=== PATIENT | male | born 1940 | race Caucasian/White ===

== ENCOUNTER 2017-02-13 06:03 | Day surgery (SDC) | payer MEDICARE, OTHER ==
[~2017-02-13] VITALS: Ht 177.8 cm; Wt 73.6 kg
[2017-02-13 06:51] VITALS: BP 147/72; PULSE 67; RESP 20; TEMP 98.4; O2SAT 95
[2017-02-13] MEDS ORDERED: LISI-519 PO (06:52)
[2017-02-13] MEDS ORDERED: OMEP20TA93 PO (06:52)
[2017-02-13] MEDS ORDERED: ASPI81CH6 CHEW (06:52)
[2017-02-13] MEDS ORDERED: FERR325T18 PO (06:52)
[2017-02-13] MEDS ORDERED: PRAV20TA2 PO (06:52)
[2017-02-13] MEDS ORDERED: SODIUM CHLORIDE 0.9% 1000 ML IV SCH (07:00)
[2017-02-13] MEDS ORDERED: LIDOCAINE 1%/EPINEPHrine 1:100,000 SOLN 20 ML VIAL ONE (07:55)
[2017-02-13] MEDS ORDERED: MIDAZOLAM HCL 2 MG/2 ML VIAL ONE (08:03)
--- NOTE | 2017-02-13 08:29 | PD.RAD ---
Post CT Procedure Prog Note Pre Procedure Diagnosis: (1) CRI (chronic renal insufficiency) Post Procedure Diagnosis: Procedure Date: Feb 13, 2017 Supervising Radiologist: Robbie Glover JR Anesthesia: Conscious Sedation Plan of Activity Patient to Unit: ROPU Patient Condition: Good Additional Comments: CT guided large left renal cyst aspiration. Clear, straw-colored fluid obtained. Sampling not requested. F/U CT shows total decompression of the cyst. See PACS Report for procedural detail/treatment Jr. Adalberto,Robbie Palacios MD Feb 13, 2017 08:29
[2017-02-13 08:45] VITALS: BP 111/60; PULSE 65; RESP 20; TEMP 97.5; O2SAT 95
[2017-02-13 09:00] VITALS: BP 112/57; PULSE 64; RESP 20; O2SAT 97
[2017-02-13 09:30] VITALS: BP 109/59; PULSE 64; RESP 20; O2SAT 97
--- NOTE | 2017-02-13 09:31 | RADRPT ---
EXAM DATE/TIME: 02/13/2017 08:10 [facility] COMPARISON: No previous studies available for comparison. INDICATIONS : Left renal cyst with concern for compression of the upper pole calyx and resulting hydronephrosis. SEDATION TIME: 15 minutes MEDICATION(S): 1.) 2 mg midazolam (Versed) IV 2.) 100 mcg fentanyl (Sublimaze) IV DEVICE(S): 1.) 7 fr FLUID: Total volume of 350 cc of clear, yellow fluid was removed. Fluid was discarded. MEDICAL HISTORY : Hypertension. Diabetes mellitus type 2. Renal calculi. SURGICAL HISTORY : None. ENCOUNTER: Initial ACUITY: 1 day PAIN SCORE: 0/10 LOCATION: Left flank PROCEDURE: 1.) Conscious sedation with continuous EKG and oximetry monitoring. 2.) EKG and oximetry remained stable throughout the procedure. PROCEDURE : CT guided large left renal cyst aspiration. The risks, benefits and alternatives to the procedure were explained and verbal and written consent w as obtained. Using automated exposure control and adjustment of the mA and/or kV according to patien t size, radiation dose was kept as low as reasonably achievable to obtain optimal diagnostic quality images. The site was prepped in sterile fashion. Full sterile technique was used, including cap, ma sk, sterile gloves and gown and a large sterile sheet. Hand hygiene and 2% chlorhexidine and/or beta dine/alcohol prep was utilized per protocol for cutaneous antisepsis. The skin and subcutaneous tiss ues were infiltrated with local anesthetic solution. DICOM format image data is available electronic ally for review and comparison. Under CT guidance a 7 [place] nonlocking drainage catheter was passed via left midaxillary line approa into the dominant left renal cyst. Aspiration yielded clear serous fluid. A total of 350 mL of flu id was obtained. Sampling was not requested. Followup CT images show complete decompression of the cy st. Multiple bilateral renal calculi noted. CONCLUSION: Uncomplicated dominant left renal cyst decompression as above. Robbie Glover Jr., MD on February 13, 2017 at 9:26 Board Certified Radiologist. This report was verified electronically.
[2017-02-13 10:00] VITALS: BP 110/59; PULSE 64; RESP 20; O2SAT 97
[2017-02-13 10:30] VITALS: BP 115/59; PULSE 64; RESP 20; O2SAT 97
== END 2017-02-13 11:05 | disposition home or self-care (01) ==
LOC: HRAD 06:03 → HRIP 06:05 → HRAD 11:05
PROVIDERS: ATTEND Urology
DX: N28.1 Cyst of kidney, acquired (principal); N13.30 Unspecified hydronephrosis; I12.9 Hypertensive chronic kidney disease with stage 1 through stage 4 chronic kidney disease, or unspecified chronic kidney disease; N18.1 Chronic kidney disease, stage 1; E11.22 Type 2 diabetes mellitus with diabetic chronic kidney disease; Z87.442 Personal history of urinary calculi
CPT/HCPCS: 50390; 77012; 99152; C1729; J2250; J3010; J7030

== ENCOUNTER 2017-02-16 00:04 | Emergency (ER) | payer MEDICARE, OTHER ==
[~2017-02-16] VITALS: Ht 177.8 cm; Wt 75.0 kg
[~2017-02-16 00:04] MED LIST: ASPI81CH6 CHEW; FERR325T18 PO; LISI-519 PO; OMEP20TA93 PO; PRAV20TA2 PO
[2017-02-16 00:07] VITALS: BP 156/70; PULSE 72; RESP 16; TEMP 98; O2SAT 97
[2017-02-16] MEDS ORDERED: SODIUM CHLOR 0.9% 1000 ML INJ 1,000 ML IV SCH (00:24)
[2017-02-16] MEDS ORDERED: MORPHINE SULFATE 2 MG/ML INJ IV PUSH ONE ×2 (00:30→02:00)
[2017-02-16] MEDS ORDERED: SODIUM CHLORIDE 0.9% FLUSH 10 ML FLUSH IV FLUSH PRN (00:30)
[2017-02-16] MEDS ORDERED: ONDANSETRON HCL 4 MG/2 ML VIAL IVP ONE (00:30)
[2017-02-16 00:39] VITALS: O2SAT 98
--- NOTE | 2017-02-16 00:44 | PD ---
HPI Chief Complaint: Flank/Kidney Pain Time Seen by Provider: 00:17 Travel History International Travel<30 days: No Contact w/Intl Traveler<30days: No Traveled to known affect area: No History of Present Illness HPI The patient is a 76-year-old male who presents emergency department for back pain and left flank pain of 2 days' duration. The patient states he underwent fluid removal from a kidney cyst on Monday by interventional radiology , Dr. Glover. The patient had a little soreness in the back which resolved. However, yesterday developed some left back pain and is now radiating to the left flank and the left lower aspect of the abdomen. He also complains of mild nausea. He has had similar symptoms in the past secondary to a kidney stone. He denies any dysuria, frequency, or urgency. He denies any complaints of fever , chills, or sweats. Symptoms are mild to moderate, there are no known alleviating or exacerbating factors. PFSH Past Medical History Cancer: No Cardiovascular Problems: No Diabetes: Yes Patient Takes Glucophage: No Diminished Hearing: No Endocrine: No Gastrointestinal Disorders: Yes (GERD) GERD: Yes Genitourinary: No Hepatitis: No Hiatal Hernia: No Hypertension: Yes Immune Disorder: No Kidney Stones: Yes Musculoskeletal: Yes Neurologic: No Psychiatric: No Reproductive: No Respiratory: No Thyroid Disease: No Tetanus Vaccination: < 5 Years Influenza Vaccination: Yes Past Surgical History Abdominal Surgery: No AICD: No Cardiac Surgery: No Ear Surgery: No Endocrine Surgery: No Eye Surgery: No Genitourinary Surgery: Yes (LITHOTRIPSY) Gynecologic Surgery: No Joint Replacement: No Oral Surgery: No Pacemaker: No Thoracic Surgery: No Other Surgery: Yes (CT guided fluid removal from kidney cyst) Social History Alcohol Use: Yes (occasionally) Tobacco Use: No Substance Use: No Allergies-Medications (Allergen,Severity, Reaction): Coded Allergies: Sulfa (Sulfonamide Antibiotics) (Verified Allergy, Unknown, Hives, ) as child Uncoded Allergies: lodine (Allergy, Severe, Rash, 02/13/17) states chemical peel to body Reported Meds & Prescriptions Reported Meds & Active Scripts Active Reported Pravastatin 20 Mg Tab 20 Mg PO DAILY Omeprazole 20 Mg Tab 20 Mg PO DAILY Lisinopril 5 Mg Tab 5 Mg PO DAILY Ferrous Sulfate 325 Mg (65 Mg Iron) Tablet 325 Mg PO DAILY Aspirin Low Dose (Aspirin) 81 Mg Chew 81 Mg CHEW DAILY Review of Systems Except as stated in HPI: all other systems reviewed are Neg General / Constitutional: No: Fever, Chills Cardiovascular: No: Chest Pain or Discomfort Respiratory: No: Shortness of Breath Gastrointestinal: Positive: Nausea, Abdominal Pain, No: Vomiting, Diarrhea Genitourinary: Positive: Flank Pain, No: Urgency, Frequency, Dysuria, Hematuria Skin: No Rash Physical Exam Narrative GENERAL: Awake, alert, pleasant 76-year-old male who appears his stated age and is in no acute respiratory distress. SKIN: Focused skin assessment warm/dry. HEAD: Atraumatic. Normocephalic. EYES: Pupils equal and round. No scleral icterus. No injection or drainage. ENT: No nasal bleeding or discharge. Mucous membranes pink and moist. NECK: Trachea midline. No JVD. CARDIOVASCULAR: Regular rate and rhythm. No murmur appreciated. RESPIRATORY: No accessory muscle use. Clear to auscultation. Breath sounds equal bilaterally. GASTROINTESTINAL: Abdomen soft, minimal left flank and left lower quadrant tenderness. Back: No CVA tenderness. MUSCULOSKELETAL: No obvious deformities. No clubbing. No cyanosis. No edema. NEUROLOGICAL: Awake and alert. No obvious cranial nerve deficits. Motor grossly within normal limits. Normal speech. PSYCHIATRIC: Appropriate mood and affect; insight and judgment normal. Data Data Last Documented VS Vital Signs Date Time Temp Pulse Resp B/P (MAP) Pulse Ox O2 Delivery O2 Flow Rate FiO2 02/16/17 00:39 98 Room Air 02/16/17 00:07 98.0 72 16 Orders Orders Complete Blood Count With Diff (02/16/17 00:24) Comprehensive Metabolic Panel (02/16/17 00:24) Lipase (02/16/17 00:24) Urinalysis - C+S If Indicated (02/16/17 00:24) Ct Abd/Pel W/O Iv Contrast (02/16/17 00:24) Iv Access Insert/Monitor (02/16/17 00:24) Ecg Monitoring (02/16/17 00:24) Oximetry (02/16/17 00:24) Ondansetron Inj (Zofran Inj) (02/16/17 00:30) Sodium Chlor 0.9% 1000 Ml Inj (Ns 1000 M (02/16/17 00:24) Sodium Chloride 0.9% Flush (Ns Flush) (02/16/17 00:30) Morphine Inj (Morphine Inj) (02/16/17 00:30) Ketorolac Inj (Toradol Inj) (02/16/17 02:00) Morphine Inj (Morphine Inj) (02/16/17 02:00) Labs Laboratory Tests Test 02/16/17 00:35 White Blood Count 6.7 TH/MM3 Red Blood Count 4.21 MIL/MM3 Hemoglobin 13.1 GM/DL Hematocrit 39.3 % Mean Corpuscular Volume 93.3 FL Mean Corpuscular Hemoglobin 31.1 PG Mean Corpuscular Hemoglobin Concent 33.3 % Red Cell Distribution Width 13.0 % Platelet Count 194 TH/MM3 Mean Platelet Volume 8.8 FL Neutrophils (%) (Auto) 51.3 % Lymphocytes (%) (Auto) 20.9 % Monocytes (%) (Auto) 9.5 % Eosinophils (%) (Auto) 17.3 % Basophils (%) (Auto) 1.0 % Neutrophils # (Auto) 3.4 TH/MM3 Lymphocytes # (Auto) 1.4 TH/MM3 Monocytes # (Auto) 0.6 TH/MM3 Eosinophils # (Auto) 1.2 TH/MM3 Basophils # (Auto) 0.1 TH/MM3 CBC Comment DIFF FINAL Differential Comment Urine Color YELLOW Urine Turbidity CLEAR Urine pH 6.0 Urine Specific [place] 1.019 Urine Protein NEG mg/dL Urine Glucose (UA) NEG mg/dL Urine Ketones NEG mg/dL Urine Occult Blood MOD Urine Nitrite NEG Urine Bilirubin NEG Urine Urobilinogen LESS THAN 2.0 MG/DL Urine Leukocyte Esterase TRACE Urine RBC 108 /hpf Urine WBC 4 /hpf Urine Hyaline Casts 4 /lpf Urine Mucus FEW /lpf Microscopic Urinalysis Comment CULT NOT INDICATED Blood Urea Nitrogen 24 MG/DL Creatinine 1.51 MG/DL Random Glucose 145 MG/DL Total Protein 7.9 GM/DL Albumin 4.3 GM/DL Calcium Level 9.2 MG/DL Alkaline Phosphatase 63 U/L Aspartate Amino Transf (AST/SGOT) 15 U/L Alanine Aminotransferase (ALT/SGPT) 22 U/L Total Bilirubin 0.3 MG/DL Sodium Level 139 MEQ/L Potassium Level 3.9 MEQ/L Chloride Level 103 MEQ/L Carbon Dioxide Level 31.5 MEQ/L Anion Gap 5 MEQ/L Estimat Glomerular Filtration Rate 45 ML/MIN Lipase 107 U/L MDM Medical Decision Making Medical Screen Exam Complete: Yes Emergency Medical Condition: Yes Medical Record Reviewed: Yes Interpretation(s) Laboratory Tests Test 02/16/17 00:35 White Blood Count 6.7 TH/MM3 Red Blood Count 4.21 MIL/MM3 Hemoglobin 13.1 GM/DL Hematocrit 39.3 % Mean Corpuscular Volume 93.3 FL Mean Corpuscular Hemoglobin 31.1 PG Mean Corpuscular Hemoglobin Concent 33.3 % Red Cell Distribution Width 13.0 % Platelet Count 194 TH/MM3 Mean Platelet Volume 8.8 FL Neutrophils (%) (Auto) 51.3 % Lymphocytes (%) (Auto) 20.9 % Monocytes (%) (Auto) 9.5 % Eosinophils (%) (Auto) 17.3 % Basophils (%) (Auto) 1.0 % Neutrophils # (Auto) 3.4 TH/MM3 Lymphocytes # (Auto) 1.4 TH/MM3 Monocytes # (Auto) 0.6 TH/MM3 Eosinophils # (Auto) 1.2 TH/MM3 Basophils # (Auto) 0.1 TH/MM3 CBC Comment DIFF FINAL Differential Comment Urine Color YELLOW Urine Turbidity CLEAR Urine pH 6.0 Urine Specific [place] 1.019 Urine Protein NEG mg/dL Urine Glucose (UA) NEG mg/dL Urine Ketones NEG mg/dL Urine Occult Blood MOD Urine Nitrite NEG Urine Bilirubin NEG Urine Urobilinogen LESS THAN 2.0 MG/DL Urine Leukocyte Esterase TRACE Urine RBC 108 /hpf Urine WBC 4 /hpf Urine Hyaline Casts 4 /lpf Urine Mucus FEW /lpf Microscopic Urinalysis Comment CULT NOT INDICATED Blood Urea Nitrogen 24 MG/DL Creatinine 1.51 MG/DL Random Glucose 145 MG/DL Total Protein 7.9 GM/DL Albumin 4.3 GM/DL Calcium Level 9.2 MG/DL Alkaline Phosphatase 63 U/L Aspartate Amino Transf (AST/SGOT) 15 U/L Alanine Aminotransferase (ALT/SGPT) 22 U/L Total Bilirubin 0.3 MG/DL Sodium Level 139 MEQ/L Potassium Level 3.9 MEQ/L Chloride Level 103 MEQ/L Carbon Dioxide Level 31.5 MEQ/L Anion Gap 5 MEQ/L Estimat Glomerular Filtration Rate 45 ML/MIN Lipase 107 U/L CT of the abdomen and pelvis without contrast reveals bilateral renal stones. There is a 4 mm stone in the left mid ureter with moderate to severe dilatation of left collecting system. Much smaller residual cyst of the left mid kidney. Left perinephric stranding. Mild fullness of the right collecting system without a right ureteral stone. Differential Diagnosis Differential diagnosis includes postoperative complication, postoperative hematoma, postoperative seroma, nephrolithiasis, hydronephrosis, pyelonephritis , diverticulitis. Narrative Course IV was established, labs are drawn and sent, and the patient was placed on cardiac telemetry monitoring and continuous pulse oximetry monitoring. Noncontrast CT of the abdomen and pelvis was ordered. The patient was administered morphine, Zofran, and IV fluids. UA was sent to lab. UA reveals RBCs, creatinine is 1.51, no baseline labs are in the EMR. The patient returned from CT, had increasing pain on the left flank. Therefore, the patient was redosed with morphine 4 mg intravenously and also administered Toradol 15 mg intravenously. I reviewed the CT the abdomen and pelvis, the patient has a left ureteral calculus with hydronephrosis. The patient was reevaluated at 2:10 AM, his pain has significantly improved. The patient will be discharged home on ibuprofen, [place], and Flomax. He will be provided a copy of his CT results and lab results at discharge. He is advised to follow-up with his urologist, Dr. Johnson, and return if symptoms worsen or progress. Diagnosis Primary Impression: Nephrolithiasis Patient Instructions: General Instructions Additional Instructions: Please provide a patient a strainer at discharge. Please provide the patient a copy of his CT results, UA results, and lab results at discharge. Medications as directed. Call your urologist office in the morning. Return if symptoms worsen or progress. Med/Other Pt SpecificInfo: Prescription(s) given Scripts Tamsulosin (Flomax) 0.4 Mg Cap 0.4 MG PO HS for Manage Prostate Problems for 7 Days, #7 CAP 0 Refills Prov: Mark Sevilla MD 02/16/17 Hydrocodone-Acetaminophen ([place]) 5 Mg-325 Mg Tab 1 TAB PO Q6H Y for PAIN, #15 TAB 0 Refills Prov: Mark Sevilla MD 02/16/17 Ibuprofen (Ibuprofen) 400 Mg Tab 400 MG PO Q6H Y for PAIN SCALE 1 TO 10, #20 TAB 0 Refills Prov: Mark Sevilla MD 02/16/17 Disposition: 01 DISCHARGE HOME Condition: Stable Mark Sevilla MD Feb 16, 2017 00:43
[2017-02-16 00:48] LABS: AUTOMATED NEUTROPHIL # 3.4 TH/MM3 (1.8-7.7); BASOPHIL # 0.1 TH/MM3 (0-0.2); EOSINOPHIL # 1.2 TH/MM3 (0-0.4); EOSINOPHIL % 17.3 % (0.0-4.0); HEMATOCRIT 39.3 % (39.0-51.0); HEMOGLOBIN 13.1 GM/DL (13.0-17.0); LYMPH % 20.9 % (9.0-44.0); LYMPHOCYTE # 1.4 TH/MM3 (1.0-4.8); MEAN CELL VOLUME 93.3 FL (80.0-100.0); MEAN CORPUSCULAR HEMOGLOBIN 31.1 PG (27.0-34.0); MEAN CORPUSCULAR HGB CONC 33.3 % (32.0-36.0); MEAN PLATELET VOLUME 8.8 FL (7.0-11.0); MONO % 9.5 % (0.0-8.0); MONOCYTE # 0.6 TH/MM3 (0-0.9); NEUT % 51.3 % (16.0-70.0); PLATELET COUNT 194 TH/MM3 (150-450); RED BLOOD COUNT 4.21 MIL/MM3 (4.50-5.90); WHITE BLOOD COUNT 6.7 TH/MM3 (4.0-11.0)
[2017-02-16 00:51] LABS: BILIRUBIN, URINE NEG (NEG); BLOOD, URINE MOD (NEG); GLUCOSE,URINE NEG (NEG); HYALINE CAST, URINE 4 /lpf (RARE); KETONE, URINE NEG (NEG); MUCUS URINE FEW /lpf (OCC); NITRITE,URINE NEG (NEG); URINE COLOR YELLOW (YELLW/STRAW); URINE LEUKOCYTE ESTERASE TRACE (NEG)
[2017-02-16 01:19] LABS: ALBUMIN 4.3 GM/DL (3.4-5.0); ALT (GPT) 22 U/L (12-78); AST (GOT) 15 U/L (15-37); BICARBONATE 31.5 MEQ/L (21.0-32.0); BLOOD UREA NITROGEN 24 MG/DL (7-18); CALCIUM 9.2 MG/DL (8.5-10.1); CHLORIDE 103 MEQ/L (98-107); CREATININE 1.51 MG/DL (0.60-1.30); GLOMERULAR FILTRATION RATE 45 ML/MIN (>89); GLUCOSE,RANDOM 145 MG/DL (74-106); LIPASE 107 U/L (73-393); SODIUM (NA) 139 MEQ/L (136-145)
[2017-02-16 01:21] LABS: ALKALINE PHOSPHATASE 63 U/L (45-117); TOTAL BILIRUBIN ADULT 0.3 MG/DL (0.2-1.0); TOTAL PROTEIN 7.9 GM/DL (6.4-8.2)
[2017-02-16] MEDS ORDERED: KETOROLAC TROMETHAMINE 30 MG/ML (IVP) VIAL IV PUSH ONE (02:00)
--- NOTE | 2017-02-16 02:08 | RADRPT ---
EXAM DATE/TIME: 02/16/2017 01:31 [facility] COMPARISON: CT GUIDED RENAL CYST ASPIR/INJ, February 13, 2017, 8:10. INDICATIONS : Patient complains of left flank pain. He had a ct guided renal cyst aspiration done 02/13. ORAL CONTRAST: No oral contrast ingested. RADIATION DOSE: 9.96 CTDIvol (mGy) MEDICAL HISTORY : Hypertension. Gastroesophageal reflux disease. Renal calculi.Renal cyst. SURGICAL HISTORY : Lithotripsy. ENCOUNTER: Initial ACUITY: 3 days PAIN SCALE: 7/10 LOCATION: Left flank TECHNIQUE: Volumetric scanning of the abdomen and pelvis was performed. Using automated exposure control and ad justment of the mA and/or kV according to patient size, radiation dose was kept as low as reasonably achievable to obtain optimal diagnostic quality images. DICOM format image data is available electro nically for review and comparison. FINDINGS: LOWER LUNGS: The visualized lower lungs are clear. LIVER: Homogeneous density without lesion. There is no dilation of the biliary tree. No calcified gallston es. SPLEEN: Normal size without lesion. PANCREAS: Within normal limits. KIDNEYS: There are renal stones in the collecting systems bilaterally being more numerous on the left. There i s moderate to severe dilatation of the left collecting system. There is a 4 mm stone seen in the left mid ureter just above the pelvic inlet. There is 5 cm area of low density within the left kidney fro m the previously seen cyst. There is mild perinephric stranding. There is mild fullness of the right collecting system. The right ureter is free of stones. ADRENAL GLANDS: Within normal limits. VASCULAR: There is no aortic aneurysm. BOWEL/MESENTERY: The stomach, small bowel, and colon demonstrate no acute abnormality. There is no free intraperitone al air or fluid. ABDOMINAL WALL: Within normal limits. RETROPERITONEUM: There is no lymphadenopathy. BLADDER: No wall thickening or mass. REPRODUCTIVE: Prostatic calcifications are present. INGUINAL: There is no lymphadenopathy or hernia. MUSCULOSKELETAL: There is degenerative change in the lumbar spine. 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 CONCLUSION: 1. Bilateral renal stones. There is a 4 mm stone in the left mid ureter with moderate to severe dilat ation of left collecting system. 2. Much smaller residual cyst of the left mid kidney. 3. Left perinephric stranding. 4. Mild fullness of the right collecting system without a right ureteral stone. Wallace Madden MD on February 16, 2017 at 1:59 Board Certified Radiologist. This report was verified electronically.
[2017-02-16] MEDS ORDERED: IBUP1TAB5 PO (02:15)
[2017-02-16] MEDS ORDERED: NORC5TAB PO (02:15)
[2017-02-16] MEDS ORDERED: TAMS5CAP PO (02:15)
== END 2017-02-16 02:33 | disposition home or self-care (01) ==
LOC: NEPE 00:04
DX: N20.0 Calculus of kidney (principal); E11.9 Type 2 diabetes mellitus without complications; K21.9 Gastro-esophageal reflux disease without esophagitis; I10 Essential (primary) hypertension; Z87.442 Personal history of urinary calculi; Z79.82 Long term (current) use of aspirin; Z79.899 Other long term (current) drug therapy; Z88.2 Allergy status to sulfonamides
CPT/HCPCS: 74176; 80053; 81001; 83690; 85025; 96374; 96375; 96376; 99284; J1885; J2270; J2405; J7030